=== PATIENT | female | born 1990 | race Hispanic/Latino ===

== ENCOUNTER 2018-08-05 08:39 | Day surgery (SDC) | payer BC ==
[2018-07-26 13:24] VITALS: BMI 31.4
[2018-08-05] MEDS ORDERED: ceFAZolin 1 gm in NS 2 GM/200 ML BAG IVPB ONE (09:22)
[2018-08-05] MEDS ORDERED: Bupivacaine-Epi 0.5%-1:200,000 PF Inj ONE (09:22)
[2018-08-05] MEDS ORDERED: Propofol 10 mg/ml Inj (20 ML) ONE (10:08)
[2018-08-05] MEDS ORDERED: Midazolam 2 MG/2 ML VIAL ONE (10:08)
[2018-08-05] MEDS ORDERED: Lidocaine 2% w Epi 1:100,000 Inj IJ ONE (10:18)
[2018-08-05] MEDS ORDERED: Bacitracin Ointment 30 GM TUBE ONE (10:42)
[2018-08-05] MEDS ORDERED: HYDROmorphone 0.5 mg/0.5 ml ISec IVP PRN (10:54)
--- NOTE | 2018-08-05 10:58 | PCM.SURG1 ---
Surgeon's Initial Post Op Note - Surgeon's Notes Surgeon: Dr. Martin Corporate Treasurer: PGY2, Sophia OMS3 Type of Anesthesia: IV Sedation Pre-Operative Diagnosis: Scalp Cyst x 2 Operative Findings: 2 scalp cyst with capsule removed intact. for details see op note Post-Operative Diagnosis: as above Operation Performed: Excision of 2 scalp cyst Specimen/Specimens Removed: 1. Cyst of scalp x 2 Estimated Blood Loss: EBL {In ML}: 1 Blood Products Given: N/A Drains Used: No Drains Post-Op Condition: Good Date of Surgery/Procedure: 08/05/18 Time of Surgery/Procedure: 10:58
[2018-08-05] MEDS ORDERED: Lactated Ringer's 1,000 ML IV SCH (11:00)
[2018-08-05 12:03] VITALS: RESP 18; TEMP 98.2
[2018-08-05 12:06] VITALS: BP 115/78; PULSE 70; O2SAT 99
--- NOTE | 2018-08-05 21:54 | OP ---
PROCEDURE DATE: 08/05/2018 SURGEON: Morgan Martin MD ASSISTANTS: 1. Joey Varner DO, PGY 2 2. MS Sophia-3 ANESTHESIA: Local plus IV sedation. PREOPERATIVE DIAGNOSIS: Scalp cyst x2. POSTOPERATIVE DIAGNOSIS: Scalp cyst x2. PROCEDURE: Excision of scalp cyst x2 with primary closure. ESTIMATED BLOOD LOSS: 1 mL. SPECIMEN: Scalp cyst. INDICATIONS FOR SURGERY: This is a 27-year-old female with increasing size cysts in scalp causing some pressure and pain, noticed to be one cyst growing further and the second cyst locating close to the left parietal region to be also growing in enhancing size. A decision was made to go to the operating room for removal of the cysts in hopes with entire capsule. The procedure was explained in detail to the patient, the risks and benefits and the patient agreed. DESCRIPTION OF PROCEDURE: The patient was taken into the operating suite and placed in a supine position with reverse Trendelenburg. Time-out was taken verifying the correct patient, location, and procedure. IV sedation was administered. The patient was hooked up to the monitors for monitoring of O2 saturation. Local anesthetic lidocaine was injected approximately 4 mL in a field block. The patient was prepped and draped in the usual sterile fashion using chlorhexidine. A #15 blade was taken with a single linear incision was made. The capsule first was dissected along the edges, and the capsule remained intact and was completely removed. The wound was explored and copiously irrigated, and no capsule was grossly seen or left behind. The incision was closed with a 0 PDS in a vertical mattress fashion, interrupted x2. Next, our attention was taken to the left lateral cyst. The previous cyst measured approximately 3 x 3 cm, and it was passed off as specimen. The cyst located on the left parietal region, a field block was used, totalling about 4 mL. A single linear incision was made, and once again the capsule was dissected out. The capsule was opened up to achieve appropriate plane and removal of the capsule. The wound was then copiously irrigated and explored. There was no gross capsule that was left behind. A 0 Prolene was used to close the skin in a vertical mattress fashion. All hemostasis was appropriately achieved. Bacitracin was used as dressing applied on top. The patient was then taken to the postanesthesia care unit in stable condition. All counts were correct at the end of the case. Dr. Martin participated in all aspect of this case. Joey Varner DO Morgan Martin MD
== END 2018-08-05 11:56 | disposition home or self-care (01) ==
LOC: C.SDS 08:39
PROVIDERS: ATTEND Surgery
DX: L72.3 Sebaceous cyst (principal); L72.11 Pilar cyst
CPT/HCPCS: 11424; 12032; 88305; J0690; J2250; J3010